=== PATIENT | male | born 1980 | race African-American/Black ===

== ENCOUNTER 2020-04-13 22:56 | Emergency (ER) | payer OTHER ==
[~2020-04-13] VITALS: Ht 167.6 cm; Wt 167.8 kg
[2020-04-13] MEDS ORDERED: KETOROLAC TROMETHAMINE 60 MG INJ IM ONE ×2 (23:30→23:36)
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
--- NOTE | 2020-04-14 01:00 | NUR ---
Patient in room talking on phone. No distress noted.
[2020-04-14 01:46] VITALS: BP 138/87
--- NOTE | 2020-04-14 02:01 | NUR ---
Patient discharged to home in stable condition. Written and verbal after care instructions given. Patient verbalizes understanding of instructions. Stressed follow up or return to ER for worsening s/s.
== END 2020-04-14 02:01 | disposition home or self-care (01) ==
LOC: ER 22:58
DX: S43.401A Unspecified sprain of right shoulder joint, initial encounter (principal); V03.90XA Pedestrian on foot injured in collision with car, pick-up truck or van, unspecified whether traffic or nontraffic accident, initial encounter; Y93.01 Activity, walking, marching and hiking; Y92.414 Local residential or business street as the place of occurrence of the external cause; R03.0 Elevated blood-pressure reading, without diagnosis of hypertension
CPT/HCPCS: 73030; 96372; 99283; J1885; A4663